=== PATIENT | female | born 2000 | race Caucasian/White ===

== ENCOUNTER 2023-10-05 17:49 | Emergency (ER) | payer OTHER, SELFPAY ==
[2023-10-05 17:51] VITALS: BP 156/98
[2023-10-05] MEDS: TYLENOL 1000 MG PO (18:35)
--- NOTE | 2023-10-05 18:35 | ED.GENMED ---
History of Present Illness
General
Chief Complaint: Back Pain
Source: patient
Exam Limitations: none
Time Seen by Provider: 10/05/23 17:56
Nursing documentation reviewed up to this point in time: agreed with
History of Present Illness
History of Present Illness:
PT IS A 23 Y/O F
no sig pmh
here with mid lower back pain that started abuptly last night when she leaned over the dryer to get clothes
felt stuck in that position with a pop sound and pain
she says her legs were a little shaky and she felt like muscle spasms in her back when she tried to mvoe. she got to the chair and sat there, but her spasms lasted a while beofer they eased up
she has more pain with movement, robina sitting and trying to walk
she has not had any weakness in the legs todya, numbness, incontinence, fever,chlls
pt tired tyelnol last night and today 9 am but she is due to have breast reduction surgery in 2 days and cannot take any nsaids
no h/o chronic back problems
has seen chiropracctor previously for neck issues
Past History
Past History
ED Past Medical History: Hypothyroidism and Other (kidney stones)
Social History
Tobacco: Non-smoker
Alcohol: None
Drug: None
Personal: Single
Living: with family
Review of Systems
Review of Systems
Allergies reviewed?: Yes
All Other Systems: Not applicable
Phy Exam
Physical Exam
Physical Exam:
GENERAL: Alert , in no apparent distress, comfortable at rest
HEAD: NCAT
NECK: no midline tenderness, active ROM intact, no paraspinal muscle tenderness;
CARDIAC: Regular rate and rhythm, no edema
LUNGS: Clear breath sounds bilaterally, no acute respiratory distress, no wheezes/rales/rhonchi
ABDOMEN: Soft, without focal tenderness, no r/g, no cvat, normal bowel sounds, nondistended
NEUROLOGICAL: Alert and oriented, no focal neuro deficits, CN intact, 5/5 strength, sensation intact,
SKIN: Warm and dry, no rashess
MUSCULOSKELETAL: No edema, well perfused. Normal inspection of the right hip, left leg
Patient has no tenderness to palpation of the hip, minimal tenderness in the R SI joint
Back: No midline tenderness, mild dextroscoliosis, slight left paraspinal muscle tenderness on exam, no swelling
negative straight leg raise Bilaterally
PSYCH: Normal and appropriate interaction.
Course
Orders/Labs/Results
Orders:
Orders
10/05/23 18:31
Acetaminophen [Tylenol] 1,000 mg PO NOW STA
diazePAM [Valium Injection] 5 mg IM NOW STA
10/05/23 18:59
Lumbar Spine Complete, 4 View [CR Lumbar Spine Comp Min 4 Vw*] Urgent
Comment:
Reason For Exam: lower back pain after bending over
10/05/23 20:06
Oxycodone [Roxicodone] 5 mg PO NOW STA
10/05/23 21:10
Prednisone [Deltasone] 50 mg PO NOW STA
Vital Signs
Initial and Last Documented VS:
Initial Vital Signs
Temp Pulse Resp BP Pulse Ox
97.9 F 92 16 156/98 97
10/05/23 17:51 10/05/23 17:51 10/05/23 17:51 10/05/23 17:51 10/05/23 17:51
Last Documented Vital Signs
Temp Pulse Resp BP Pulse Ox
97.9 F 92 16 156/98 97
10/05/23 17:51 10/05/23 17:51 10/05/23 17:51 10/05/23 17:51 10/05/23 17:51
MDM/Problems Addressed
Differential Diagnosis Includes:
lumbar disc herniation, spinal stenosis, muscle spasms, sciatica
MDM/Problems Addressed:
23 y/o f with no chroni medical problems
here with intense loewr back pain when bent over yesterday, felt pop, midline back pain that has raidatied into right buttock and into right thigh
she has painful changing positions, some intermittent tingling in the leg when in certain positions but that is not a persistent symptom
she has had waves of spasms of pain that come with changing position and then she can't move
she has not had any incontience, fever, weakness in her legs
she has no perineal anesthesia
only tried tyylenol yesterday and this morning for pain because she is scheduled to have surgery in 2 days for breast reduction and is unable to take any nsaids
pt looks comfortable at rest
she does have a lotof pain with movement
no significant midline tendenress
normal sensation to her buttocks
right SI joint tenderness
pain in the R buttock with straight leg rasie left and right but NO radicular pain down the legs with straight leg raise
normal sensaiont and strength
discussed options
- would like to give nsaids or steroids as i feel pt's symptoms arelikely sciatica vs. lumbar radiculopathy withotu cauda equina but pt is not taking now
screening xrays indep reviewed and neg bu appreciate rads report of L5/S1 degeneratie changes
given valium IM and tylenol and reassessed;she is comfortable until trying to change position
will try oxycodone
10/05/2023 2110 PM
pt sitting up, looks much better, ambulated to the bathroom well
she called her surgoeon who ok'd the prednisone
will do 50 mg x 5 days
return precautions given
oxy already prescrbied for her surgery
she will instead try tylenol tid, valium 2-3 times a day and if needed add oxy
*Critical Care Note
Total Time (30-74mins, 75-104mins- exclusive of procedures): Not Applicable
ED Attending Note
-
Portions of this chart may have been created with voice recognition software.� Occasional wrong word or��sound alike� substitutions may have occurred due to the inherent limitations of voice recognition software.
Discharge Plan
Departure
Patient Disposition: Home (Routine Discharge)
Date of Disposition: 10/05/23
Time of Disposition: 21:08
Patient with high blood pressure during this ER visit?: No
Condition: Fair
Discharge Problem:
Acute lumbar radiculopathy, Lumbar paraspinal muscle spasm
Instructions: Radiculopathy (DC)
Prescriptions:
New
diazepam [Valium] 5 mg tablet
5 mg PO TID PRN (Reason: muscle spasm) Qty: 12 0RF
prednisone 50 mg tablet
50 mg PO DAILY Qty: 4 0RF
Referrals:
Lary Dunlap CRNP [Family Provider] - Follow up in 2-3 days
Activity Restrictions/Additional Instructions:
Your back pain may be from sciatica or from a disc herniation. Your x-ray did end up showing some mild degenerative changes between L5 and S1.
Try Tylenol 1000 mg 3 times a day. Prednisone 50 mg once a day starting tomorrow.
Additionally you can use Valium 5 mg every 8 hours as needed, this is a muscle relaxant. It can cause sedation.
If you are in severe pain you can also try one of your oxycodone tablets that you have, 5 mg every 8 hours. Be careful about combining this with Valium as they can cause sedation when combined. You also should avoid driving and drinking alcohol.
You can apply lidocaine patch to your back 12 hours on, 12 hours off, these are [id number]. When the patch is off you can do ice or heat.
Monitor for symptoms like weakness or progressive numbness in your leg, incontinence of urine, inability to void at all, fever or chills, severe pain causing inability to walk and return to the ER for any of these.
Otherwise you should follow-up with your family doctor, you may need more imaging like an MRI.
Interventions
Interventions:
*Risk Screen - Suicide Last Done: 10/05/23 17:51
*General Assessment Last Done: 10/05/23 17:51
*Neglect/Abuse Screening Last Done: 10/05/23 17:51
ED- Fall Risk Assessment Last Done: 10/05/23 18:44
*ED COVID-19 Vaccine History Last Done: 10/05/23 17:51
ED-Musculoskeletal Assessment Last Done: 10/05/23 18:44
Discharge Date and Time
Print Language: KOREAN
[2023-10-05] MEDS: VALIUM INJECTION 5 MG IM (18:36)
[2023-10-05 18:40] VITALS: BMI 31.7
[2023-10-05] MEDS: ROXICODONE 5 MG PO (20:14)
[2023-10-05] MEDS: DELTASONE 50 MG PO (21:22)
[2023-10-05 21:30] VITALS: BP 125/88
== END 2023-10-05 21:30 | disposition home or self-care (01) ==
LOC: EMR 17:49
PROVIDERS: EMERGENCY PHYSICIAN Emergency Medicine; FAMILY PHYSICIAN Nurse Practitioner Adult Health
DX: M54.16 Radiculopathy, lumbar region (principal); M62.838 Other muscle spasm
CPT/HCPCS: 99284; 96372; 72110

== ENCOUNTER → 2023-10-07 15:01 | Outpatient (REF) | payer OTHER, SELFPAY | LOC: CLAB 15:01 | PROVIDERS: ATTENDING PHYSICIAN Specialist | DX: N62 Hypertrophy of breast (principal) | CPT/HCPCS: 88305 ==